=== PATIENT | female | born 1950 | race Caucasian/White ===

== ENCOUNTER → 2025-03-05 15:53 | Outpatient (REF) | payer MEDICARE, BC, SELFPAY | LOC: HWRAD 15:53 | PROVIDERS: ATTENDING PHYSICIAN Student in an Organized Health Care Education/Training Program | DX: M25.511 Pain in right shoulder (principal) | CPT/HCPCS: 73030 ==

== ENCOUNTER → 2025-03-21 15:08 | Outpatient (REF) | payer MEDICARE, BC, SELFPAY | LOC: PAVMRI 15:08 | PROVIDERS: ATTENDING PHYSICIAN Student in an Organized Health Care Education/Training Program | DX: M25.511 Pain in right shoulder (principal) | CPT/HCPCS: 73221 ==

== ENCOUNTER 2025-05-01 06:30 | Day surgery (SDC) | payer MEDICARE, BC, SELFPAY ==
--- NOTE | 2025-04-13 10:59 | CM ---
CM reviewed medical records. CM left message for orthopedic IA.
--- NOTE | 2025-04-18 12:23 | CM ---
Orthopedic Case Management Assessment
Demographics: [address], [place], [address]
Living situation: Patient lives with spouse in a 2 story home with 1st floor set up with bed and bathroom. Patient has cane in home.
Support Person Post Operatively: Spouse
History of
VN: N
SNF: No
Outpatient No
Has patient purchased required equipment: Needs sling
PCP: Victorino Toscano
Pharmacy: [facility] in [place]
Post Operative Discharge Plan: Patient has been scheduled for right shoulder surgery on 05/01/[address] Hunt, home health care case manager reached out to patient to confirm supports, patient's spouse to assist with transportation. Patient states she did not get a
sling.
[2025-04-19 11:13] LABS: Hematocrit 42.0 % (37.0-47.0); Hemoglobin 13.9 g/dL (12.0-16.0); Mean Corp Hgb Conc. 33.1 g/dL (33.0-37.0); Mean Corpuscular Volume 87.5 fL (81.0-99.0); Platelet Count 211 10^3/uL (130-400); Red Cell Dist. Width 14.4 % (11.5-14.5)
[2025-04-19 12:01] LABS: ALT (SGPT) 20 U/L (0-35); AST (SGOT) 26 U/L (14-36); Albumin 4.4 g/dl (3.5-5.0); Alkaline Phosphatase 86 U/L (38-126); Blood Urea Nitrogen 16 mg/dl (7-17); Calcium 9.7 mg/dl (8.4-10.2); Carbon Dioxide 28 mmol/L (22-30); Chloride 103 mmol/L (98-107); Glucose 99 mg/dl (70-99); Potassium 4.1 mmol/L (3.5-5.1); Sodium 136 mmol/L (135-145); Total Protein 7.4 g/dl (6.3-8.2); eGFR > 60.00
[2025-04-19 13:31] VITALS: BMI 35.7
[2025-04-19 14:06] VITALS: BMI 35.7
[2025-04-19 14:07] LABS: Glycohemoglobin (HgbA1c) 5.5 % (4.0-5.9)
[2025-05-01] VITALS (9 sets, daily range): BP systolic 122–156; BP diastolic 60–84
[2025-05-01] MEDS: TYLENOL 1000 MG PO (08:36)
[2025-05-01] MEDS: CELEBREX 200 MG PO (08:36)
[2025-05-01] MEDS: NORMOSOL-R/PLASMALYTE-A 1000 IV (08:37)
--- NOTE | 2025-05-01 12:54 | W.DS.TRANS ---
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
-
Discharge Instructions:
Sleep Apnea Risk Low
Discharge Diagnosis/Procedures R Reverse TSA Dr Hunt 05/01/22
Activity No strenuous activity
Driving Restrictions No driving
Instructions:
Stand-Alone Forms: SDS Total Shoulder D/C Inst.
Changes to Home Medications: Yes
Discharge Medications:
DC Medications w/original date entered in [employer]
erythromycin 5 mg/gram (0.5 %) eye ointment 1 applic ophthalmic (eye) BID both eyes due to implants 04/17/25
famciclovir 500 mg tablet 500 mg PO DAILY 04/17/25
fexofenadine-pseudoephedrine ER 180 mg-240 mg tablet,ext.release 24 hr (Katerina-D 24 Hour) 1 tab PO DAILY PRN nasal congestion 04/17/25
multivitamin 1 tab PO DAILY 04/17/25
Held on 05/01/25. Instructions: Resume on 05/09/25.
mupirocin 2 % topical ointment 1 applic topical BID infection prevention #1 tube 04/18/25
dexamethasone 4 mg tablet 4 mg PO BID inflammation #6 tabs 04/20/25
doxycycline hyclate 100 mg capsule 100 mg PO BID infection prevention #10 caps 04/20/25
famotidine 20 mg tablet 20 mg PO HS GI prophylaxis #30 tabs 04/20/25
gabapentin 300 mg capsule 300 mg PO HS sleep/pain #10 caps 04/20/25
meloxicam 15 mg tablet 15 mg PO DAILY anti-inflammatory #14 tabs 04/20/25
ondansetron 4 mg disintegrating tablet 4 mg PO Q6H PRN n/v #20 tabs 04/20/25
oxycodone 5 mg tablet 5 mg PO Q6H PRN 1 tab moderate pain, 2 tabs severe pain #30 tabs 04/20/25
Saccharomyces boulardii 250 mg capsule (Florastor) 250 mg PO BID #1 cap 05/01/25
acetaminophen 325 mg tablet (Tylenol) 650 mg (2 x 325 mg) PO QID #1 tab 05/01/25
aspirin 325 mg tablet 325 mg PO DAILY blood clot prevention #1 tab 05/01/25
docusate sodium 100 mg capsule (Colace) 100 mg PO BID #0 caps 05/01/25
magnesium hydroxide 400 mg/5 mL oral suspension (Milk of Magnesia) 30 ml PO HS PRN constipation #1 mL 05/01/25
prednisolone acetate 1 % eye drops,suspension 1 drp ophthalmic (eye) BID both eyes 05/01/25
sennosides 8.6 mg tablet (Senokot) 17.2 mg (2 x 8.6 mg) PO BID laxative #2 tabs 05/01/25
Home Medication Changes
mupirocin 2 % topical ointment 1 applic topical BID infection prevention #1 tube 04/18/25
dexamethasone 4 mg tablet 4 mg PO BID inflammation #6 tabs 04/20/25
doxycycline hyclate 100 mg capsule 100 mg PO BID infection prevention #10 caps 04/20/25
famotidine 20 mg tablet 20 mg PO HS GI prophylaxis #30 tabs 04/20/25
gabapentin 300 mg capsule 300 mg PO HS sleep/pain #10 caps 04/20/25
meloxicam 15 mg tablet 15 mg PO DAILY anti-inflammatory #14 tabs 04/20/25
ondansetron 4 mg disintegrating tablet 4 mg PO Q6H PRN n/v #20 tabs 04/20/25
oxycodone 5 mg tablet 5 mg PO Q6H PRN 1 tab moderate pain, 2 tabs severe pain #30 tabs 04/20/25
Saccharomyces boulardii 250 mg capsule (Florastor) 250 mg PO BID #1 cap 05/01/25
acetaminophen 325 mg tablet (Tylenol) 650 mg (2 x 325 mg) PO QID #1 tab 05/01/25
aspirin 325 mg tablet 325 mg PO DAILY blood clot prevention #1 tab 05/01/25
docusate sodium 100 mg capsule (Colace) 100 mg PO BID #0 caps 05/01/25
magnesium hydroxide 400 mg/5 mL oral suspension (Milk of Magnesia) 30 ml PO HS PRN constipation #1 mL 05/01/25
prednisolone acetate 1 % eye drops,suspension 1 drp ophthalmic (eye) BID both eyes 05/01/25
sennosides 8.6 mg tablet (Senokot) 17.2 mg (2 x 8.6 mg) PO BID laxative #2 tabs 05/01/25
Pending Results: No
[2025-05-01] MEDS: ANCEF 5 IV (13:57)
== END 2025-05-01 14:10 | disposition home or self-care (01) ==
LOC: SDS 06:30
PROVIDERS: ATTENDING PHYSICIAN Specialist; FAMILY PHYSICIAN Student in an Organized Health Care Education/Training Program; OTHER PHYSICIAN Physician Assistant Medical
DX: M19.011 Primary osteoarthritis, right shoulder (principal); Z96.611 Presence of right artificial shoulder joint
CPT/HCPCS: 23472; C1776; 36415; 73020; 80053; 83036; 85027; 87070; 93005; C1713